=== PATIENT | male | born 1995 | race Caucasian/White ===

== ENCOUNTER 2018-09-29 01:44 | Emergency (ER) | payer SELFPAY ==
[2018-09-29 02:05] VITALS: BMI 24.3
[2018-09-29 02:12] VITALS: O2SAT 98
[2018-09-29] MEDS ORDERED: Tetanus/Diphtheria Toxoids 0.5 ml Syringe IM ONE ×2 (02:31→02:50)
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
[2018-09-29 05:06] VITALS: BP 130/72; PULSE 62; RESP 20; TEMP 98
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
== END 2018-09-29 05:02 | disposition home or self-care (01) ==
LOC: C.ER 01:44
DX: S60.511A Abrasion of right hand, initial encounter (principal); W25.XXXA Contact with sharp glass, initial encounter; Z23 Encounter for immunization

== ENCOUNTER 2018-10-21 04:39 | Emergency (ER) | payer SELFPAY | END 2018-10-21 05:45 | disposition home or self-care (01) | LOC: C.ER 04:39 ==